=== PATIENT | female | born 1930 | race Caucasian/White ===

== ENCOUNTER → 2017-01-16 | Outpatient (CLI) | payer MEDICARE ==
[~2017-01-16] MED LIST: ACYCLOVIR800 MG PO; ASPIRIN 325MG325 MG PO; METOPROLOL50 MG PO; PREDNISONE50 MG PO; RAMIPRIL2.5 MG PO; STARLIX120 MG PO
[2017-01-16 10:48] LABS: BUN 17 mg/dL (7-18)
[2017-01-16 10:49] LABS: GFR (ESTIMATED) 60 ML/MIN (59-)
== END ==
LOC: LAB 09:05
PROVIDERS: Internal Medicine Cardiovascular Disease
DX: R07.9 Chest pain, unspecified (principal); R06.09 Other forms of dyspnea; I10 Essential (primary) hypertension; E11.9 Type 2 diabetes mellitus without complications; R00.2 Palpitations; K21.9 Gastro-esophageal reflux disease without esophagitis

== ENCOUNTER → 2017-01-20 | Outpatient (CLI) | payer MEDICARE ==
--- NOTE | 2017-01-20 20:57 | RADIOLOGY REPORT PS360 ---
PROCEDURE: 2-D M-mode and color Doppler study INDICATIONS FOR THE TEST: Chest pain X COPD Heart Murmur Tobacco Smoking PalpitationsX Fatigue Syncope Edema HypertensionXDiabetes MellitusX Rheumatic Fever SOB DOEXObesity Hyperlipidemia Family History HD Additional History PATIENT INFORMATION HEIGHT: 62 WEIGHT:166 GENDER: Female B/P:110/60 2-D/M-MODE INTERPRETATION: 2-D MEASUREMENTS OBSERVED VALUES IN CMS Right Ventricular Dimension (RVDd) .8 Interventricular Septum (Thickness)(IVsd) 1.1 Left Ventricular Internal Dimensions(LVIDd) 5.7 Left Ventricular Posterior Wall (Thickness)(LVPWd) 1.2 Aortic Root 3.3 Aortic Cusp Separation 1.4 Left Atrial Dimensions (LAD) 3.9 2D 1. Left atrium is mildly enlarged, left ventricle is normal size, there is mild concentric left ventricular hypertrophy, visually estimated ejection fraction 55% with no obvious regional wall motion abnormality. 2. The right atrium is mildly enlarged, right ventricle is normal size and contractility. 3. The aortic valve is minimally thickened and fibrosed. 4. The mitral and tricuspid valve leaflets are minimally thickened. 5. The pulmonic valve is not well visualized. 6. No significant pericardial effusion noted. DOPPLER INTERROGATION: Doppler interrogation of the aortic, mitral and tricuspid valvular presence of mild mitral, mild aortic and tricuspid regurgitation, calculated right ventricular systolic pressure is 40 mmHg consistent with mild pulmonary hypertension, grade 1 diastolic dysfunction seen without tissue Doppler evidence of raised left atrial pressure. CONCLUSION: 1. Mild biatrial enlargement, normal left ventricular size, preserved left ventricular systolic function, visually estimated ejection fraction of 55% with no obvious regional wall motion abnormality, grade 1 diastolic dysfunction seen without tissue Doppler evidence of raised left atrial pressure. 2. Mild aortic, mild mitral and tricuspid regurgitation, calculated right ventricular systolic pressure 40 mmHg consistent with mild pulmonary hypertension. 3. No significant pericardial effusion.
--- NOTE | 2017-01-22 14:19 | RADIOLOGY REPORT PS360 ---
History and Indications: History of MS, hypertension, diabetes, shortness of breath, palpitations, syncope and fatigue Procedure: Patient received a 0.4 mg of Lexiscan, resting heart rate was 71 bpm, resting blood pressure 177/95, with Lexiscan maximum heart rate achieved was 96 bpm is less than 85% of the maximum predicted heart rate and a blood pressure was 146/74. With Lexiscan patient complained of stomach discomfort, nausea and chest pressure requiring intravenous Aminophyllin to reverse symptoms. Electrocardiogram: Resting electrocardiogram showed sinus rhythm, with Lexiscan, there is less than 1.[address] segment depression noted from the baseline EKG. The EKG portion of the Lexiscan is nondiagnostic Cardiac stress and resting SPECT images: Cardiac stress and rest SPECT images were obtained using technetium 99 Myoview 11.3 mCi at rest and 32.6 mCi at stress, gated SPECT further analysis of segmental wall motion and calculation of the ejection fraction also done. Cardiac stress and rest images show decreased tracer activity in the anteroapical and apical wall which improves on the resting images suggestive of reversible ischemia in that area. Computer derived ejection fraction is over 65% with no obvious regional wall motion abnormality, right ventricle is normal size and contractility. Conclusion: 1. The EKG portion of the Lexiscan Myoview is nondiagnostic. 2. Scintigraphic evidence of mild reversible ischemia involving the anteroapical and apical wall. Computer derived ejection fraction is over 65% with no obvious regional wall motion abnormality, right ventricle is normal size and contractility. 3. Abnormal Lexiscan Myoview study.
== END ==
LOC: RT 10:50 → RAD 12:00
DX: R07.9 Chest pain, unspecified (principal); R06.09 Other forms of dyspnea; I10 Essential (primary) hypertension; E11.9 Type 2 diabetes mellitus without complications; R00.2 Palpitations; K21.9 Gastro-esophageal reflux disease without esophagitis
CPT/HCPCS: A9502; J2785

== ENCOUNTER 2017-02-09 07:29 | Day surgery (SDC) | payer MEDICARE ==
[2017-02-09 08:03] LABS: HEMOGLOBIN 15.1 g/dL (12.2-16.2); LYMPH # 1.4 K/mm3 (0.7-4.5); LYMPH % 25.4 % (10-50.0)
[2017-02-09 08:10] LABS: BUN 11 mg/dL (7-18); GFR (ESTIMATED) 68 ML/MIN (59-)
--- NOTE | 2017-02-09 09:57 | RADIOLOGY REPORT PS360 ---
CARDIAC CATHETERIZATION DATE OF CATHETERIZATION:02/09/2017 9:26 AM PROCEDURES: CARDIAC CATHETERIZATION DATE OF CATHETERIZATION:02/09/2017 9:44 AM PROCEDURES: 1. Left heart catheterization 2. Left ventriculogram 3. Selective coronary antrum INDICATION FOR TEST: 1. Abnormal Myoview 2. Angina pectoris 3. Risk factors for coronary artery disease Informed consent was obtained prior to the procedure. COMPLICATIONS: None ESTIMATED BLOOD LOSS: Less than 10 ml. TECHNIQUE: One percent lidocaine was used to anesthetize the right groin. The right femoral artery was accessed via the Seldinger technique. A 5-Ind[place]ian sheath was placed in the right femoral artery. The JL-4 and JR-4 catheter was also used to perform left heart catheterization and left ventriculography. At the end of the procedure the patient was transferred to the post-op holding area in stable condition for arterial sheath removal. ANGIOGRAPHIC RESULTS: 1. The left main artery normal 2. The left anterior descending artery mild proximal 20% stenosis 3. The circumflex artery nondominant normal 4. The right coronary artery large dominant and normal 5. The MONSON ventriculogram reveals 65% 6. The left ventricular end-diastolic pressure 10 mmHg IMPRESSION: 1. Mild nonflow limiting coronary artery disease . 2. Normal ejection fraction 3. Normal left ventricular end-diastolic pressure PLAN: 1. Medical management 2. Evaluation noncardiac chest pain 3. Risk factor modification 1. 2. 3. 4. INDICATION FOR TEST: 1. 2. 3. Informed consent was obtained prior to the procedure. COMPLICATIONS: ESTIMATED BLOOD LOSS: Less than 10 ml. TECHNIQUE: One percent lidocaine used to anesthetize the right anterior aspect of the wrist. The right radial artery was accessed via the Seldinger technique. A 6 Indonesian sheath was placed in the right radial artery. 2.5 mg of verapamil, 800 mcg of nitroglycerin and 5000 U Heparin were given through the arterial sheath. The Giselle catheter was also used to perform left heart catheterization and left ventriculography. At the end of the procedure the patient was transferred to the post-op holding area in stable condition for arterial sheath removal. ANGIOGRAPHIC RESULTS: 1. The left main artery 2. The left anterior descending artery 3. The circumflex artery 4. The right coronary artery 5. The MONSON ventriculogram reveals 6. The left ventricular end-diastolic pressure IMPRESSION: 1. coronary arteries. 2. 3. 4. 5. PLAN: 1. 2. 3.
[2017-02-09 14:54] VITALS: BP 160/88
== END 2017-02-09 15:06 | disposition home or self-care (01) ==
LOC: CATHLAB 07:29
PROVIDERS: Internal Medicine
PROC: B2111ZZ Fluoroscopy of Multiple Coronary Arteries using Low Osmolar Contrast (ICD-10-PCS; 2017-02-09)
PROC: B2151ZZ Fluoroscopy of Left Heart using Low Osmolar Contrast (ICD-10-PCS; 2017-02-09)
PROC: 4A023N7 Measurement of Cardiac Sampling and Pressure, Left Heart, Percutaneous Approach (ICD-10-PCS; principal; 2017-02-09 08:30)
DX: I25.119 Atherosclerotic heart disease of native coronary artery with unspecified angina pectoris (principal); R94.39 Abnormal result of other cardiovascular function study; R07.9 Chest pain, unspecified; I11.9 Hypertensive heart disease without heart failure; E11.9 Type 2 diabetes mellitus without complications
CPT/HCPCS: C1725; C1769; J1644; Q9967